=== PATIENT | male | born 1975 | race Caucasian/White ===

== ENCOUNTER → 2016-04-22 | Day surgery (SDC) | payer BC ==
[~2016-04-22] VITALS: Ht 188 cm; Wt 90.1 kg
[~2016-04-22] MED LIST: *morphine SULFATE 8 MG/ML PERIprocedure ONLY ONE; ACETAMINOPHEN 1000 MG/100 ML VIAL IV ONE; ACETAMINOPHEN 1000 MG/100 ML VIAL IV SCH; BUPIVACAINE/EPINEPHRINE 0.25% PF 30 ML VIAL ONE; DEXAMETHASONE SOD PHOS 4 MG/ML VIAL ONE; DO NOT ADM ANY ANTICOAGULANT DRUGS XX PRN; FAMOTIDINE 20 MG/2 ML VIAL ONE; IBUP200T2 PO; INSULIN HUMAN REGULAR 1,000 UNITS/10 ML VIAL SQ PRN; LACTATED RINGER'S 1000 ML INJ 1,000 ML IV ONE; LACTATED RINGER'S 1000 ML IV SCH; METOPROLOL TARTRATE 25 MG TAB PO PRN; MIDAZOLAM HCL 2 MG/2 ML VIAL ONE; MORPHINE SULFATE 4 MG/ML INJ IV PRN; MULTTAB67 PO; NEOSTIGMINE 3 MG/3 ML SYR IV ONE; ONDANSETRON HCL 4 MG/2 ML VIAL IV PUSH ONE; ONDANSETRON HCL 4 MG/2 ML VIAL IV PUSH PRN; PROPOFOL 200 MG/20 ML AMP IV ONE; SODIUM CHLORID 0.9% 500 ML IV SCH; ceFAZolin 2 GM PREMIX 50 ML IV SCH; fentaNYL CITRATE 250 MCG/5 ML AMP ONE; oxyCODONE/ACETAMINOPHEN 5 MG/325 MG TAB PO PRN
[2016-04-22 06:39] VITALS: BP 117/75; PULSE 60; RESP 18; TEMP 97.9; O2SAT 99
--- NOTE | 2016-04-22 10:05 | PD.OP ---
cc: Billy Morris MD Operative Report Date of Surgery: Apr 22, 2016 Preoperative Diagnosis: (1) Left inguinal hernia Postoperative Diagnosis: (1) Left inguinal hernia (2) Lipoma, spermatic cord Procedure: Laparoscopic totally extraperitoneal left inguinal hernia repair with mesh Anesthesia: NHI Surgeon: Billy Morris Nutrition Coordinator(s): Abram GRACIA Operation and Findings: Complications: None apparent Estimated blood loss: 10 cc Operative findings: The patient had a fairly large indirect left inguinal hernia and a large left spermatic cord lipoma. Procedure in detail: The patient was taken to the operating room and placed in the supine position. General endotracheal anesthesia was induced. The abdomen was prepped and draped in usual sterile fashion and a surgical timeout performed to verify correct patient procedure and site. A 1 cm incision was made inferior to the umbilicus after infiltration of local anesthetic. Dissection carried down to the underlying fascia and the anterior fascia to the left of midline was incised vertically. The retrorectus space was developed and the dissecting balloon placed down towards the pubis. The extraperitoneal space was developed by insufflating the balloon. This trocar was then removed and the structural balloon was placed. The extraperitoneal space was insufflated to 11 mmHg with CO2 gas which the patient tolerated well. Next two 5 mm ports were placed in the lower midline. Attention was turned to the left inguinal area. Lateral dissection was carried out until the psoas muscle was identified. Medially Noah's ligament was identified. The spermatic cord was evaluated and a fairly large indirect hernia sac was identified and reduced completely. In addition, a large spermatic cord lipoma was identified and completely reduced out of the inguinal canal. Ultrapro advanced mesh was cut to 12 x 15 cm size and was placed in the left inguinal area. It was attached at Noah's ligament and superior laterally as well as of the rectus anteriorly with protack tacker. There was complete coverage of the entire inguinal floor including the indirect and direct spaces. The extraperitoneal spaces and allowed to desufflate and trochars were removed. The anterior fascia was closed with running 2-0 Vicryl suture and skin with 4-0 Monocryl subcuticular as well as Dermabond. The patient tolerated the procedure well and was extubated and taken to PACU in stable condition. Billy Morris MD Apr 22, 2016 10:05
[2016-04-22 11:32] VITALS: BP 127/75; PULSE 76; RESP 16; TEMP 97; O2SAT 99
== END | disposition home or self-care (01) ==
LOC: HSDC 05:51
PROVIDERS: ATTEND Surgery
DX: K40.90 Unilateral inguinal hernia, without obstruction or gangrene, not specified as recurrent (principal); D17.6 Benign lipomatous neoplasm of spermatic cord
CPT/HCPCS: 00840; 49650; C1727; C1781; J0131; J0690; J1100; J2250; J2270; J2405; J2710; J3010; J7120